=== PATIENT | male | born 1975 | race Caucasian/White ===

== ENCOUNTER 2017-06-14 17:46 | Emergency (ER) | payer BC, OTHER ==
--- NOTE | 2017-06-14 18:55 | UC ---
Lower Extremity/Ankle HPI - HPI Summary HPI Summary: This is a 41 yo male with h/o HTN who presented with c/o L 1st toe pain. He was mowing the lawn yesterday and stepped off the mower when heard a "crack" and had sudden pain. The toe has become swollen and bruised since the time of injury. He denied falling or twisting his foot unusually. - History of Current Complaint Chief Complaint: UCGeneralIllness Stated Complaint: LEFT BIG TOE COMPLAINT - Allergies/Home Medications Allergies/Adverse Reactions: Allergies Allergy/AdvReac Type Severity Reaction Status Date / Time Amoxicillin AdvReac Diarrhea Verified 06/14/17 17:57 Penicillins AdvReac Diarrhea Verified 06/14/17 17:57 Home Medications: Home Medications Rosuvastatin Calcium [Crestor] 10 mg BEDTIME 06/14/17 [History Confirmed ] PMH/Surg Hx/FS Hx/Imm Hx Previously Healthy: No - HTN, fatty liver Cardiovascular History: Hypertension - Surgical History Surgical History: Yes Surgery Procedure, Year, and Place: vasectomy - Family History Known Family History: Positive: Hypertension - Social History Alcohol Use: None Substance Use Type: None Smoking Status (MU): Never Smoked Tobacco - Immunization History Most Recent Influenza Vaccination: 2016 Most Recent Tetanus Shot: UTD Review of Systems Constitutional: Negative Skin: Negative Eyes: Blurred Vision ENT: Negative Respiratory: Negative Cardiovascular: Negative Gastrointestinal: Negative Genitourinary: Negative Motor: Negative Neurovascular: Negative Musculoskeletal: Arthralgia, Decreased ROM Neurological: Negative Psychological: Negative All Other Systems Reviewed And Are Negative: Yes Physical Exam Triage Information Reviewed: Yes Appearance: Well-Appearing Vital Signs: Initial Vital Signs Temp 97.5 F 06/14/17 17:59 Pulse 83 06/14/17 17:59 Resp 18 06/14/17 17:59 BP 159/81 06/14/17 17:59 Pulse Ox 95 06/14/17 17:59 Vital Signs Reviewed: Yes Neck: Positive: Supple, Nontender Respiratory: Positive: Chest non-tender, Lungs clear. Negative: Crackles, Stridor, Wheezing Cardiovascular: Positive: RRR, No Murmur Musculoskeletal: Positive: ROM Intact, Other: - TTP at the lateral proximal segment of the L 1st toe Skin: Positive: Other - ecchymosis at the base of the L 1st toe Diagnostics - Laboratory Diagnostic Studies Completed/Ordered: XR L foot - Possible fracture of the medial proximal aspect of the distal phalanx of the L GT Lower Extremity Course/Dx - Course Course Of Treatment: This is a 41 yo male with acute L toe injury. XR demonstrates possible nondisplaced fracture of the proximal distal phalynx. Recommended postop shoe and monique taping, but pt refused postop shoe. Recommended immobilization of his toe however possible to improve healing. - Differential Dx/Diagnosis Differential Diagnosis/HQI/PQRI: Contusion, Fracture (Closed), Fracture (Open), Sprain Provider Diagnoses: 1. L 1st toe fracture Discharge - Discharge Plan Condition: Stable Disposition: HOME Patient Education Materials: Toe Fracture (ED) Referrals: Non Staff,Doctor [Primary Care Provider] - Additional Instructions: Instructions: 1. Immobilize the 1st toe to promote healing, recommend postop shoe with monique taping 2. Use ibuprofen and ice for pain and swelling
[2017-06-14 19:54] VITALS: BP 143/91
--- NOTE | 2017-06-14 20:14 | RAD ---
INDICATION: Left great toe pain COMPARISON: None. TECHNIQUE: 3 views of the left foot were obtained. FINDINGS: Depicted best on the oblique views, there is cortical discontinuity at the medial proximal corner of the left great toe distal phalanx. Remaining visualized bones are intact and properly aligned. IMPRESSION: POTENTIAL NONDISPLACED FRACTURE AT THE PROXIMAL DORSOMEDIAL CORNER OF THE LEFT GREAT TOE DISTAL PHALANX.
== END 2017-06-14 20:28 | disposition home or self-care (01) ==
LOC: UCCORT 17:46
DX: H53.8 Other visual disturbances (principal); S92.425A Nondisplaced fracture of distal phalanx of left great toe, initial encounter for closed fracture; X58.XXXA Exposure to other specified factors, initial encounter; Y93.89 Activity, other specified; Y92.9 Unspecified place or not applicable; Z88.0 Allergy status to penicillin; I10 Essential (primary) hypertension
CPT/HCPCS: 99212; G0463

== ENCOUNTER 2019-02-02 07:12 | Emergency (ER) | payer OTHER ==
[2019-02-02 07:35] VITALS: BP 134/70
--- NOTE | 2019-02-02 07:44 | UC ---
Respiratory Complaint HPI - HPI Summary HPI Summary: 43 yo male with 3 week hx of cough sinus pressure nasal congestion no fever x 1 1/2 weeks wheezing no CP or sob has used inhalers before - History of Current Complaint Chief Complaint: UCRespiratory Stated Complaint: COUGH,CONGESTION Time Seen by Provider: 02/02/19 07:37 Hx Obtained From: Patient Onset/Duration: Gradual Onset, Lasting Weeks Timing: Constant Severity Initially: Mild Severity Currently: Moderate Pain Intensity: 0 Pain Scale Used: 0-10 Numeric Character: Cough: Nonproductive Aggravating Factors: Nothing Associated Signs And Symptoms: Positive: Wheezing, Nasal Congestion - Allergies/Home Medications Allergies/Adverse Reactions: Allergies Allergy/AdvReac Type Severity Reaction Status Date / Time alcohol Allergy Severe hives and Verified 02/02/19 07:27 swelling amoxicillin Allergy Unknown loose Verified 02/02/19 07:27 stools bee venom protein (honey bee) Allergy Unknown hives and Verified 02/02/19 07:27 swelling Penicillins AdvReac Unknown loose Verified 02/02/19 07:27 stools Home Medications: Home Medications Atorvastatin* [Lipitor*] 20 mg PO DAILY 02/02/19 [History Confirmed 02/02/19] D-Methorphan/PE/Acetaminophen [Multi Symptom Flu & Sever 20-10-500 mg] 1 pow PO PRN 02/02/19 [History] Montelukast Sodium TAB* [Singulair TAB*] 10 mg PO DAILY 02/02/19 [History Confirmed 02/02/19] PMH/Surg Hx/FS Hx/Imm Hx Previously Healthy: Yes Endocrine History: Dyslipidemia Cardiovascular History: Hypertension Respiratory History: Bronchitis, Pneumonia - Surgical History Surgical History: Yes Surgery Procedure, Year, and Place: vasectomy - Family History Known Family History: Positive: Hypertension - Social History Alcohol Use: None Substance Use Type: None Smoking Status (MU): Never Smoked Tobacco - Immunization History Most Recent Influenza Vaccination: 2016 Most Recent Tetanus Shot: UTD Review of Systems All Other Systems Reviewed And Are Negative: Yes Constitutional: Positive: Fatigue Skin: Positive: Negative Eyes: Positive: Negative ENT: Positive: Nasal Discharge, Sinus Congestion, Sinus Pain/Tenderness Respiratory: Positive: Cough Cardiovascular: Positive: Negative Gastrointestinal: Positive: Negative Genitourinary: Positive: Negative Motor: Positive: Negative Neurovascular: Positive: Negative Musculoskeletal: Positive: Negative Neurological: Positive: Negative Psychological: Positive: Negative Physical Exam Triage Information Reviewed: Yes Appearance: Well-Appearing, No Pain Distress, Well-Nourished Vital Signs: Initial Vital Signs Temp 97.2 F 02/02/19 07:30 Pulse 74 02/02/19 07:30 Resp 17 02/02/19 07:30 BP 134/70 02/02/19 07:30 Pulse Ox 96 02/02/19 07:30 Vital Signs Reviewed: Yes Eyes: Positive: Conjunctiva Clear ENT: Positive: Hearing grossly normal, Nasal congestion, Nasal drainage, TMs normal, Uvula midline. Negative: Tonsillar swelling, Tonsillar exudate, Trismus , Hoarse voice, Dental tenderness, Sinus tenderness Neck: Positive: Supple, Nontender, No Lymphadenopathy Respiratory: Positive: No respiratory distress, No accessory muscle use, Wheezing Cardiovascular: Positive: RRR, No Murmur Musculoskeletal: Positive: ROM Intact, No Edema Neurological: Positive: Alert Psychological Exam: Normal Skin Exam: Normal Respiratory Course/Dx - Course Course Of Treatment: POx 96% on room air comment - normal/not hypoxic - Differential Dx/Diagnosis Provider Diagnosis: Acute bronchitis with bronchospasm, Acute rhinosinusitis Discharge - Sign-Out/Discharge Documenting (check all that apply): Patient Departure All imaging exams completed and their final reports reviewed: No Studies - Discharge Plan Condition: Stable Disposition: HOME Prescriptions: Azithromycin TAB* [Zithromax TAB*] 250 mg PO DAILY #6 tab predniSONE [Deltasone 20 MG TAB] 40 mg PO DAILY #10 tab Patient Education Materials: Acute Bronchitis (ED), How to Use a Metered-Dose Inhaler and a Spacer (ED) Referrals: No Primary Care Phys,NOPCP [Primary Care Provider] - Additional Instructions: recheck in 4-5 days if not better - Billing Disposition and Condition Condition: STABLE Disposition: Home
[2019-02-02] MEDS ORDERED: predniSONE TAB* 20 MG PO ONE (07:45)
[2019-02-02] MEDS ORDERED: Albuterol HFA INHALER* 8 gm MDI INH ONE (07:45)
== END 2019-02-02 08:01 | disposition home or self-care (01) ==
LOC: UCCORT 07:12
DX: J20.9 Acute bronchitis, unspecified (principal); J01.90 Acute sinusitis, unspecified; E78.5 Hyperlipidemia, unspecified; I10 Essential (primary) hypertension; Z91.030 Bee allergy status; Z88.0 Allergy status to penicillin; Z91.048 Other nonmedicinal substance allergy status
CPT/HCPCS: 99212; A9270-GY; G0463; J7512